=== PATIENT | female | born 1985 | race Caucasian/White ===

== ENCOUNTER 2017-04-16 21:42 | Emergency (ER) | payer MEDICAID ==
[2017-04-17 01:52] LABS: BASOPHIL % 0.3 % (0-2); PLATELET COUNT 131 x10^3mcL (130-400); RED CELL DISTRIBUTION WIDTH 13.1 % (11.5-14.5)
[2017-04-17 01:55] LABS: microscopic required? YES; urine erythrocyte TRACE (NEGATIVE)
[2017-04-17 02:03] LABS: CALCIUM 9.1 mg/dL (8.5-10.1); CARBON DIOXIDE 25.3 mmol/L (21-32); CHLORIDE SERUM 103 mmol/L (98-107); GFR1 > 60 mL/min; GLUCOSE SERUM 192 mg/dL (74-106); POTASSIUM SERUM 3.9 mmol/L (3.5-5.1); SODIUM SERUM 139 mmol/L (136-145)
[2017-04-17 02:07] LABS: ALBUMIN 3.8 g/dL (3.4-5.0); ALKALINE PHOSPHATASE 102 U/L (46-116); ALT/SGPT 85 U/L (14-59); AMYLASE 44 U/L (25-115); AST/SGOT 45 U/L (15-37); BILIRUBIN TOTAL 0.33 mg/dL (0.20-1.00); LIPASE 115 IU/L (73-393); TOTAL PROTEIN, SERUM 7.8 g/dL (6.4-8.2)
[2017-04-17 05:19] VITALS: BP 138/88
== END 2017-04-17 05:19 | disposition home or self-care (01) ==
LOC: ED 21:42
PROVIDERS: Emergency Medicine
DX: N10 Acute pyelonephritis (principal)
CPT/HCPCS: 36415; J1170; Q0162

== ENCOUNTER 2019-05-17 10:59 | Emergency (ER) | payer MEDICAID ==
[~2019-05-17] VITALS: Ht 160 cm; Wt 92.5 kg
[2019-05-17 11:10] VITALS: Ht 160 cm; Wt 92.5 kg
[2019-05-17 13:01] VITALS: BP 117/74
== END 2019-05-17 13:15 | disposition home or self-care (01) ==
LOC: ED 10:59
DX: M94.0 Chondrocostal junction syndrome [Tietze] (principal); E11.9 Type 2 diabetes mellitus without complications
CPT/HCPCS: J1885; J7512; Q0092